=== PATIENT | male | born 1980 | race Two or more races ===

== ENCOUNTER 2017-09-26 20:33 | Emergency (ER) | payer SELFPAY ==
[~2017-09-26] VITALS: Ht 180.3 cm; Wt 106.6 kg
[2017-09-26 21:04] LABS: Basophils # (auto) 0.1 uL; Eosinophils # (auto) 0.1 uL; Eosinophils % (auto) 1.1 % (0.0-7.0); Hematocrit 45.3 % (41.0-53.0); Hemoglobin 15.3 g/dL (13.5-17.5); Lymphocytes % (auto) 31.1 % (10.0-50.0); Mean Corpuscular Hemoglobin 31.4 pg (28.0-32.0); Mean Corpuscular Hgb Conc. 33.7 g/dL (32.0-36.0); Mean Platelet Volume 7.1 fL (6.9-10.8); Monocytes % (auto) 7.7 % (0.0-12.0); Neutrophils # (auto) 7.7 uL; Neutrophils % (auto) 59.1 % (37.0-80.0); Platelet Count (auto) 317 10^3/uL (140-450); Red Cell Distribution Width 13.1 % (11.8-14.3)
[2017-09-26 21:19] LABS: Albumin 3.9 g/dL (3.4-5.0); Anion Gap 8 (5-15); Aspartate Aminotransferase 12 U/L (15-37); Blood Urea Nitrogen 13 mg/dL (7-18); Calcium 8.8 mg/dL (8.5-10.1); Carbon Dioxide 26 mmol/L (21-32); Chloride 106 mmol/L (98-107); GFR African American 108 mL/min; GFR Non-African American 89 mL/min; Glucose 101 mg/dL (74-106); Magnesium 2.4 mg/dL (1.6-2.6); Potassium 3.8 mmol/L (3.5-5.1); Sodium 140 mmol/L (136-145)
[2017-09-26 21:22] LABS: INR 0.96 (0.9-1.15); Partial Thromboplastin Time 30.3 sec (22.64-33.71); Prothrombin Time 10.5 sec (9.37-12.3)
[2017-09-26 21:24] LABS: Alkaline Phosphatase 102 U/L (45-117); Bilirubin, Total 0.5 mg/dL (0.2-1.0); Total Protein 7.7 g/dL (6.4-8.2)
[2017-09-26] MEDS ORDERED: SODIUM CHLORIDE 0.9% 1,000 ML IV ONE (23:15)
[2017-09-26 23:45] LABS: Urine Bilirubin Negative (Negative); Urine Blood Negative /uL (Negative); Urine Color Yellow (Yellow); Urine Glucose Normal (Normal); Urine Ketone Negative (Negative); Urine Mucus FEW (None Seen); Urine Nitrite Negative (Negative); Urine RBC <1 /hpf (0 - 3); Urine Urobilinogen Normal (Negative)
[2017-09-27 00:21] VITALS: BP 136/89
== END 2017-09-27 02:04 | disposition home or self-care (01) ==
LOC: ER 20:33
DX: R07.89 Other chest pain (principal); K29.70 Gastritis, unspecified, without bleeding; F41.9 Anxiety disorder, unspecified; F17.210 Nicotine dependence, cigarettes, uncomplicated; F12.10 Cannabis abuse, uncomplicated
CPT/HCPCS: 36415; 71010; 74176; 80053; 80307; 81001; 83735; 84443; 84484; 85025; 85610; 85730; 93005; 96360

== ENCOUNTER 2024-05-17 16:02 | Emergency (ER) | payer MEDICAID, OTHER ==
[~2024-05-17] VITALS: Ht 180.3 cm; Wt 112.7 kg
[2024-05-17 16:37] VITALS: PULSE 98; RESP 31; TEMP 97.5; O2SAT 98
[2024-05-17] MEDS: HYDROmorphone HCL 2 MG/ML VL/or syr IV ONE (16:50)
[2024-05-17] MEDS: SODIUM CHLORIDE 0.9% 1,000 ML IV ONE (17:39)
[2024-05-17] MEDS: PROPOFOL 10 MG/ML 20 ML IV ONE (17:39)
[2024-05-17 18:00] VITALS: BP 152/100; PULSE 90; RESP 20; O2SAT 97
== END 2024-05-17 18:43 | disposition home or self-care (01) ==
LOC: ER 16:02
DX: S43.085A Other dislocation of left shoulder joint, initial encounter (principal); I10 Essential (primary) hypertension; E11.9 Type 2 diabetes mellitus without complications; F17.210 Nicotine dependence, cigarettes, uncomplicated; F15.90 Other stimulant use, unspecified, uncomplicated; X58.XXXA Exposure to other specified factors, initial encounter; Y93.89 Activity, other specified; Y92.89 Other specified places as the place of occurrence of the external cause; Y99.8 Other external cause status
CPT/HCPCS: 23650; 73020; 73030; 96361; 96374; 99152; 99285; J1170; J2704; J7030